=== PATIENT | male | born 1980 | race Caucasian/White ===

== ENCOUNTER 2024-12-09 13:39 | Outpatient (REF) | payer BC, SELFPAY ==
--- NOTE | 2024-12-09 13:47 | EMG_ITS ---
Chief complaint: Right hand numbness Reason for referral: Evaluate for Carpal Tunnel Syndrome Referred by: Mikayla Slade Procedure done: Right upper extremity NCS/EMG Precautions and/or limitations: None The limb temperature was monitored continuously and remained between 32-36 degrees C during the performance of the NCS. Nerve Conduction Studies Anti Sensory Summary Table ?Stim Site NR Onset (ms) Norm Onset (ms) Peak (ms) Norm Peak (ms) O-P Amp (?V) Norm O-P Amp Site1 Site2 Delta-0 (ms) Dist (cm) Lyndon (m/s) Norm Lyndon (m/s) Right Median Anti Sensory (2nd Digit) Wrist NR <3.6 >10 Wrist 2nd Digit 14.0 Right Radial Anti Sensory (Thumb) Forearm ? 1.5 1.9 <3.1 15.8 Forearm Thumb 1.5 0.0 Right Ulnar Anti Sensory (5th Digit) Wrist ? 2.1 2.8 <3.7 25.7 >15.0 Wrist 5th Digit 2.1 14.0 67 Motor Summary Table ?Stim Site NR Onset (ms) Norm Onset (ms) O-P Amp (mV) Norm O-P Amp iAmp (mV) Amp (1st) (%) Site1 Site2 Delta-0 (ms) Dist (cm) Lyndon (m/s) Norm Lyndon (m/s) Right Median Motor (Abd Poll Brev) Wrist NR <3.9 >4.5 Elbow Wrist 0.0 >45 Elbow NR Right Ulnar Motor (Abd Dig Minimi) Wrist ? 2.4 <3.0 7.4 >5 8.4 100.0 B Elbow Wrist 3.8 23.0 61 >45 B Elbow ? 6.2 7.2 8.4 97.3 A Elbow B Elbow 1.6 10.0 63 >45 A Elbow ? 7.8 6.9 8.2 93.2 EMG ?Side Muscle Nerve Root Ins Act Fibs Psw Amp Dur Poly Recrt Int Pat Comment Right 1stDorInt Ulnar C8-T1 Nml Nml Nml Nml Nml 0 Nml Complete Right FlexCarRad Median C6-7 Nml Nml Nml Nml Nml 0 Nml Complete Right Biceps Musculocut C5-6 Nml Nml Nml Nml Nml 0 Nml Complete Right Triceps Radial C6-7-8 Nml Nml Nml Nml Nml 0 Nml Complete Right Deltoid Axillary C5-6 Nml Nml Nml Nml Nml 0 Nml Complete FINDINGS: Right median motor and sensory nerves showed absent response. All other nerves tested were within normal. Concentric needle EMG was performed in selected muscles of the right upper extremity. Study did not reveal signs of electric abnormalities as shown in the table above. IMPRESSION: 1. This is an abnormal study. 2. There is electrodiagnostic evidence for right severe median neuropathy at the wrist, consistent with carpal tunnel syndrome. 3. There is no electrodiagnostic evidence for ulnar neuropathy, brachial plexopathy, or cervical radiculopathy. Thank you for your kind referral. Elba Allen MD, AYE Board Certified, [place] Board of Physical Medicine and Rehabilitation (ABPMR) Board Certified, [place] Board of Electrodiagnostic Medicine (ABEM) [address] [id number] [facility]
== END 2024-12-09 13:40 | disposition home or self-care (01) ==
LOC: HO.NEURO 13:39
DX: M25.50 Pain in unspecified joint (principal); R20.0 Anesthesia of skin; R20.2 Paresthesia of skin
CPT/HCPCS: 95886; 95909

== ENCOUNTER → 2024-12-09 13:47 | Outpatient (BNV) | payer BC, SELFPAY | PROVIDERS: Visit Provider Physical Medicine & Rehabilitation | DX: G56.21 Lesion of ulnar nerve, right upper limb (principal) | CPT/HCPCS: 95886; 95909 ==

== ENCOUNTER 2024-12-16 13:21 | Outpatient (AMB) | payer BC, SELFPAY ==
--- NOTE | 2024-12-16 13:24 | A.OFFVIS_ITS ---
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 Patient states he has had CTS for 3-4 months. Patient reports having numbness and tingling in thumb, index and middle finger, reports numbness and tingling is constant. States at night he is having tingling sensation in arm. Patient is also Complaining of pain in arm. Patient also reports of possible cyst around wrist area. AM EMG/NCS done on 12/09/24 Allergies No Known Allergies Allergy (Verified 12/16/24 14:00) HPI HPI BACK ORDER CLERK-Right hand CTS, EMG DONE: Details: Jamie is a 44 year old right hand dominant male who presents today as a new patient for evaluation of his right upper extremity. Patient states he has had CTS for 3-4 months. Patient reports having numbness and tingling in thumb, index and middle finger, reports numbness and tingling is constant. States at night he is having tingling sensation in arm. Patient is also Complaining of pain in arm. Patient also reports of possible cyst around wrist area. AM EMG/NCS done on 12/09/24 [facility], [facility] Social History (Updated 12/16/24 @ 14:04 by Breanna Slaughter [facility]) Patient Tobacco Use Status: Former Tobacco user Current occupational status: employed Current occupation: sales planner/ right hand Review of Systems Const All systems reviewed & are unremarkable except as noted in HPI and below Physical Exam Vital Signs: BMI result Body Mass Index 33.4 Extrem Other: Neuro: Decreased sensation in the median nerve distribution of the right hand. Normal sensation to the ring and small fingers. Normal sensation in the tips of all digits of the left hand today. No thenar or intrinsic wasting. Good APB muscle firing and good finger cross. Vascular: Capillary refill brisk. ROM: Patient can make a fist and extend all their digits. Skin: No lacerations or abrasions noted. General: No ecchymosis. No erythema or evidence of infection. [] Results Reviewed Results Reviewed: IMPRESSION: 1. This is an abnormal study. 2. There is electrodiagnostic evidence for right severe median neuropathy at the wrist, consistent with carpal tunnel syndrome. 3. There is no electrodiagnostic evidence for ulnar neuropathy, brachial plexopathy, or cervical radiculopathy. Thank you for your kind referral. Elba Allen MD, AEY Assessment & Plan Assessment & Plan (1) Right carpal tunnel syndrome: Code(s): G56.01 - Carpal tunnel syndrome, right upper limb Category: Medical Plan 1. Right carpal tunnel syndrome Symptoms intermittent, daily, worse at night I educated the patient about the condition. I discussed both operative and nonoperative treatment options. The patient would like to proceed with surgery. The risks and benefits of operative treatment were discussed with the patient and the patient wishes to proceed with surgery. These risks include, but are not limited to, risk of damage to blood vessels, nerves, tendons, infection, recurrence, incomplete relief of preoperative symptoms, persistent pain, possible need for further surgery, and the risks associated with regional blocks and/or anesthesia. Plan is to take the patient to the operating room at some point in the next few weeks for the following procedures: 1. Right carpal tunnel release under local All of the preoperative paperwork including the consent was discussed today. All of the patient's questions were answered in the clinic today. The patient understands that they will be in contact with our surgical garment inspector to discuss scheduling their procedure. Patient denies diabetes, blood thinners, asthma, heart issues, lung issues, kidney issues, or current smoking. Coding Level of Care Code New Pt Level 4 (34753) Diagnoses Right carpal tunnel syndrome G56.01
[2024-12-16 13:55] VITALS: BMI 33.4
== END 2024-12-16 14:24 | disposition home or self-care (01) ==
LOC: HO.HOS 13:22
DX: G56.01 Carpal tunnel syndrome, right upper limb (principal)
CPT/HCPCS: 99204

== ENCOUNTER 2025-01-02 10:05 | Day surgery (SDC) | payer BC, SELFPAY ==
[2025-01-02 11:10] VITALS: BP 127/76; PULSE 74; RESP 16; TEMP 36.3; O2SAT 97
--- NOTE | 2025-01-02 12:15 | MHC.SHP ---
Pre-Procedural Eval Section A - 24 Hr Update-Section A only Date of Service: 01/02/25 The patient is an INPATIENT: No Changes since office visit: No Cold of Flu in the past 2 weeks, No New Medical Problems, No Changes in Medication and No Patient answered all questions The patient has been examined within 24 hours of the surgical procedure. The History & Physical has been completed within 30 days and I have reviewed it.: Yes Section B - Complete if H&P > 30 days Chief Complaint: Carpal tunnel syndrome, right upper limb Allergies: Allergies Allergy/AdvReac Type Severity Reaction Status Date / Time No Known Allergies Allergy Verified 12/16/24 14:00 Plan Diagnosis/Plan: Unchanged I have reviewed the history and physical and performed a pertinent physical examination on my patient. No changes have occurred unless specified. Time Spent With Patient Time: Total time managing care of this patient today ____ minutes.
--- NOTE | 2025-01-02 12:16 | W.PM.OPN ---
Operative Note Operative Note Date of Service: 01/02/25 Narrative: Preop diagnosis: 1. Right Carpal tunnel syndrome Postop diagnosis: same Procedure: 1. Right Carpal tunnel release Surgeon: Karlee Nelson MD [employer] Maker: Quinton WRIGHT Anesthesia: local block using 1% lidocaine with epinephrine Findings: Thickened transverse carpal ligament. EBL: Less than 5 mL Specimens: None Complications: None Disposition: Brought to recovery room in stable condition Plan: Follow-up for 10-14 days for wound check and suture removal Indications: The patient is 44 years old, with right carpal tunnel syndrome that has been unresponsive to nonoperative management. The risks and benefits of operative treatment including but not limited to risk of damage to blood vessels, nerves, tendons, infection, persistent pain, persistent symptoms, or possible need for additional surgery were discussed with the patient and the patient wishes to proceed with surgery. Procedure: Once consent was obtained a local block was performed using a combination of 1% lidocaine with epinephrine. The patient was then brought back to the operating suite and placed on the operative table in supine position. The right upper extremity was prepped and draped in a standard surgical fashion. Once assured that we had a good block, a 2.0 cm longitudinal incision was made centered over the carpal tunnel. The incision was made through the skin to the subcutaneous tissues using a #15 blade. Dissection was made down to the level of the transverse carpal ligament with care being taken to protect the palmar cutaneous nerve. Once the transverse carpal ligament was clearly visualized, a longitudinal incision was made in the transverse carpal ligament 1st using a #15 blade, then using tenotomy scissors under direct visualization. Care was taken to look for and protect the motor branch of the median nerve when seen in this area. Once satisfied with our carpal tunnel release the wound was copiously irrigated with normal saline and hemostasis was obtained with a brief period of local pressure. The skin edges were reapproximated with some 5.0 nylon suture material and a sterile dressing was applied. The patient appears to have tolerated the procedure well and with no complications. All digits were well vascularized at the conclusion of the case.
[2025-01-02 13:32] VITALS: BP 115/69; PULSE 67; O2SAT 99
== END 2025-01-02 13:45 | disposition home or self-care (01) ==
PROVIDERS: Visit Provider Orthopaedic Surgery
PROC: (CPT 64721; principal; 2025-01-02 10:30)
DX: G56.01 Carpal tunnel syndrome, right upper limb (principal); R20.0 Anesthesia of skin; R20.2 Paresthesia of skin; M79.601 Pain in right arm; Z87.891 Personal history of nicotine dependence
CPT/HCPCS: 64721; J0165; J2003

== ENCOUNTER → 2025-01-02 10:05 | Outpatient (BNV) | payer BC, SELFPAY | PROVIDERS: Visit Provider Orthopaedic Surgery | DX: G56.01 Carpal tunnel syndrome, right upper limb (principal) | CPT/HCPCS: 64721 ==

== ENCOUNTER 2025-01-17 11:28 | Outpatient (AMB) | payer BC, SELFPAY ==
--- NOTE | 2025-01-17 11:43 | MHC.OFFVIS ---
Vital Signs 01/17/25 11:59 Handedness Right Intake Visit Reasons: PO RT CTR 01/02/25 AR Intake Note: Jamie is a 44 year old right hand dominant man who presents today for a post operative visit status post right carpal tunnel release, DOS: 01/02/[address] Karlee Nelson. Patient reports he has some random twinging that is occurring in the 1st, 2nd, and 3rd digits of the right hand. HE states he no longer has to utilize a brace at night due to his symptoms improving. He feels some pulling' at the site of his incision. Denies any discharge. Sutures removed and steri strips applied. Allergies No Known Allergies Allergy (Verified 12/16/24 14:00) HPI HPI PO RT CTR 01/02/25 AR: Details: Jamie is a 44 year old right hand dominant man who presents today for a post operative visit status post right carpal tunnel release, DOS: 01/02/[address] Karlee Nelson. Patient reports he has some random twinging that is occurring in the 1st, 2nd, and 3rd digits of the right hand. HE states he no longer has to utilize a brace at night due to his symptoms improving. He feels some pulling' at the site of his incision. Denies any discharge. Sutures removed and steri strips applied. [facility] Medical History Right carpal tunnel syndrome Surgical History Status post carpal tunnel release (~01/02/25) Social History Patient Tobacco Use Status: Former Tobacco user Advance Directives Date on File: 01/02/25 Current occupational status: employed Current occupation: senior planner/ right hand Physical Exam Extrem Other: Neuro: Decreased sensation in the median nerve distribution of the right hand. Normal sensation to the ring and small fingers. Normal sensation in the tips of all digits of the left hand today. No thenar or intrinsic wasting. Good APB muscle firing and good finger cross. Vascular: Capillary refill brisk. ROM: Patient can make a fist and extend all their digits. Skin: Well approximated and well healing incision noted of the volar right wrist No lacerations or abrasions noted. General: No ecchymosis. No erythema or evidence of infection. [] Assessment & Plan Assessment & Plan (1) Right carpal tunnel syndrome: Code(s): G56.01 - Carpal tunnel syndrome, right upper limb Category: Medical Plan 1. Status post right carpal tunnel release Patient appears to be recovering well postoperatively Patient is educated about the typical recovery course No acute follow-up indicated, as patient appears to be recovering well Patient is amenable to this plan Follow-up as needed Coding Level of Care Code Global (22427) Diagnoses Right carpal tunnel syndrome G56.01
--- OUTSIDE RECORDS SUMMARY | 2025-01-17 12:41 | XMS_ITS | Encounter Summary ---
Author Organization [facility] Address [address] [facility] [address] [place] [phone] Phone Care Team Providers Care Regional Forester Name Role Phone Abbie Granado Primary Care Provide r Kali Poole MD Unavailable Darlin Melara MD Primary Care Provid er Kirsty Kat MEDICAL ADMINISTRATIVE SPECIALIST Primary Care Provider [phone] Mikayla Schmidt MEDICAL ADMINISTRATIVE SPECIALIST Primary Care Provider [phone] Encounter Details Date Type Department Care Team (Late Contact Info) Description 05/31/2021 Procedure Pass [facility] Endoscopy Admitting Dept Virtual Department [address] [place] [id number] Social History Tobacco Use Types Packs/Day Years Used Date Smoking Tobacco: Former Cigarettes 0.8 20 1 - 04/18/2017 Smokeless Tobacco: Never Alcohol Use Standard Drinks/Week Comments Yes 2 (1 standard drink = 0.6 oz pur e alcohol) Sex and Gender Information Value Date Recorded Sex Assigned at Not on file Legal Sex Male 10:30 PM EDT Gender Identity Male 12/19/2019 1:52 PM EDT Sexual Orientation Straight 12/19/2019 1: 52 PM EDT 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 [place] [address] [email or web address] 04/14/2025 11:30 AM EDT Office Visit Susy Olmos, Rheumatology [address] [facility], [address] [place] [address] Yulissa Shahid, DIRECTOR DISTRIBUTION [address] [facility] [address] [place] [address] [email or web address] documented as of this encounter Visit Diagnoses Not on filedocumented in this encounter Additional Health Concerns Infection Onset Date Last Indicated Resolved Time CoV-Risk 10/27/2021 10/27/2021 11/07/2021 1:23 AM EDT CoV-Risk 05/01/2023 05/01/2023 05/12/2023 1:23 AM EST Assessment Noted Time PHQ-2 Depression Total Score: 2 04/18/20 20 1:10 PM EDT documented as of this encounter Care Teams Regional Forester Relationship Specialty Start Date End Date Abbie Granado PA [address] [place] [id number] [email or web address] PCP - General 12/20/19 12/01/21 Darlin Melara MD [address] [address] [email or web address] PCP - General Family Medicine 12/02/21 02/17/24 Kirsty Kat NP [address] [place] [address] [email or web address] PCP - General Nurse Practitioner 02/18/24 01/05/25 Mikayla Schmidt NP [address] [place] [id number] PCP - General Nurse Practitioner 01/06/25 Kali Poole MD [address] [place] [address], [address] [place] [address] [email or web address] Insurance Assigned Provider Internal Medicine 12/20/19 documented as of this encounter Additional Source Comments The information contained in this document represents components of the legal health record. It is not the complete legal health record.[facility]
== END 2025-01-17 12:08 | disposition home or self-care (01) ==
LOC: HO.HOS 11:29
DX: G56.01 Carpal tunnel syndrome, right upper limb (principal)
CPT/HCPCS: 99024